=== PATIENT | male | born 1960 | race Caucasian/White ===

== ENCOUNTER 2019-04-10 10:21 | Emergency (ER) | payer BC ==
[2019-04-10 10:31] VITALS: TEMP 98.2; BMI 30.1
--- NOTE | 2019-04-10 10:43 | PDOC ---
History of Present Illness - General Chief Complaint: CVA/TIA Stated Complaint: LT ARM NUMBNESS Time Seen by Provider: 04/10/19 10:38 History Source: Patient Exam Limitations: No Limitations - History of Present Illness Initial Comments: 04/11/19 07:18 HPI: 59M PMH HTN, IDDM, and CAD s/p 2 stents presenting with 1 week of left arm numbness and tingling described as on and off affecting the dorsal aspect of the forearm. Numbness affected his first three fingers of the left hand yesterday and slightly improved over the day. Pt came to ED for evaluation of symptoms, concerned 2/2 past DC presentation. Denies cp/palpitation/sob. Denies f/c, other numbness/tingling, weakness, headache, lightheadedness, dizziness, changes in vision/hearing. No pain associated w/ sx. No neck pain. Atraumatic. No prior episodes of sx. 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 [facility] PCP PCN allergy 1PPD smoker etoh on weekends Past History - Past Medical History Allergies/Adverse Reactions: Allergies Allergy/AdvReac Type Severity Reaction Status Date / Time Penicillins Allergy Verified 04/10/19 10:26 Home Medications: Ambulatory Orders Aspirin [ASA -] 81 mg PO DAILY 04/10/19 Clopidogrel Bisulfate [Clopidogrel] 75 mg PO DAILY 04/10/19 Insulin Glargine,Hum.rec.anlog [Lantus Solostar PEN -] 10 units SQ HS 04/10/19 Lisinopril 5 mg PO DAILY 04/10/19 Metoprolol Tartrate [Lopressor -] 25 mg PO BID 04/10/19 metFORMIN HCL [Metformin HCl ER] 750 mg PO BID 04/10/19 COPD: No CHF: No DVT: No GI Disorders: Yes (DIVERTICULITIS) - Surgical History Abdominal Surgery: Yes (BOWEL RESECTION) Cardiac Surgery: Yes (STENTS X 2) - Immunization History Immunization Up to Date: Yes - Psycho Social/Smoking Cessation Hx Smoking History: Current every day smoker Number of Cigarettes Smoked Daily: 20 Information on smoking cessation initiated: No Hx Alcohol Use: No Drug/Substance Use Hx: No Review of Systems - Review of Systems Able to Perform ROS?: Yes Comments:: 04/11/19 07:18 ROS: CONSTITUTIONAL: Denies F / C HEENT: Denies headache, lightheadedness, dizziness, changes in vision / hearing , diplopia, blurry vision. RESP: Denies SOB CARD: Denies chest pain, palpitations GI: Denies N / V / D, abdominal pain, inability to tolerate PO SKIN: Denies rashes NEURO: Endorses numbness and tingling of the left arm and hand. Denies weakness MSK: Denies back and neck pain. Is the patient limited Korean proficient: No *Physical Exam - Vital Signs Last Vital Signs Temp Pulse Resp BP Pulse Ox 98.2 F 82 16 161/62 95 04/10/19 10:27 04/10/19 10:27 04/10/19 10:27 04/10/19 10:27 04/10/19 10:27 - Physical Exam Comments: 04/11/19 07:18 PE: GEN: Well appearing, NAD, comfortable. AAOx3 HEENT: NC/AT, CN II-XII intact, EOMI, PERRLA. No facial asymmetry. Moist mucous membranes. Normal voice. Supple neck w/ FROM. Sx not reproducible w/ ranging of neck. No midline c-spine TTP. CV: S1/S2, RRR, no m/r/g LUNG: CTAB, no wheezes, crackles, rales, rhonchi. GI: soft, ndnt, +BS, no guarding, no rebound EXTREMITIES: No obvious deformities of all extremities. SKIN: warm, dry, normal turgor PSYCH: normal mood and affect NEURO: Moving all extremities well. 5/5 symmetric strength of hand and finger muscles. 5/5 UE and LE strength b/l. Symmetric sensation to light touch. Numbness on the first three fingers of left hand and dorsal aspect of left forearm on sharp testing vs right side. Ambulates w/ normal gait. Tapping of left lateral epicondyle reproduces sx Medical Decision Making - Medical Decision Making 04/10/19 11:24 MDM: 59M with numbness and tingling in the left UE, median nerve distribution. Otherwise neurologically intact. Likely carpal tunnel syndrome - wrist splint - hand surgery f/u Discharge - Discharge Information Problems reviewed: Yes Clinical Impression/Diagnosis: Carpal tunnel syndrome of left wrist Condition: Stable Disposition: HOME - Admission No - Follow up/Referral Referrals: Juanjo Quesada MD [Staff Physician] - - Patient Discharge Instructions Patient Printed Discharge Instructions: DI for Carpal Tunnel Syndrome Additional Instructions: You were evaluated in the Emergency Department. Continue your home medications as prescribed. Take NSAIDs (e.g. advil, aleeve) for pain as directed by the label. We provided you with a wrist splint; please wear this during the night on the affected wrist. You may also wear it during the times you are working on the computer. Follow up with Hand Surgery in the next 7 days. We are referring you to Dr. Quesada, you may call and schedule an appointment at the number provided. Follow up with your primary care doctor regarding this visit in the next 7-14 days Immediately return to the nearest Emergency Department if you experience worsening symptoms or if you develop new or concerning symptoms. - Post Discharge Activity Work/Back to School Note: Back to Work
[2019-04-10 11:34] VITALS: BP 120/76; PULSE 84
--- NOTE | 2019-04-10 11:42 | PDOC ---
Attending Attestation - Resident Resident Name: Tyler Churchill - ED Attending Attestation I have performed the following: I have examined & evaluated the patient, The case was reviewed & discussed with the resident, I agree w/resident's findings & plan - HPI HPI: 04/10/19 11:35 59y/o M h/o CAD/AR s/p stents p/w L arm tingling for 4 days. Patient reports gradual onset of mild paresthesias extending from the left elbow to the left first through third digits, constant and otherwise not associated with any weakness. The tingling was worse yesterday, improved today, but patient presents for evaluation mostly given concern for history of heart disease. Patient has no cardiopulmonary complaints whatsoever, he has no exercise limitations, and the symptoms are not related to exertion. No shortness of breath or dyspnea orthopnea. No associated neurological complaints such as headache/vision change/speech change/weakness. 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 - Physicial Exam PE: 04/10/19 11:42 Vital signs normal Seated comfortably in stretcher speaking full sentences Neck is supple, no midline tenderness, full range of motion without trapezial swelling or tenderness 5/5 flex/extend of b/l shoulders/elbows/wrists. 5/5 hand strength including median nerve distribution. sensory subjectively decreased along L median nerve, but objectively intact. 2+ distal pulses. - Medical Decision Making 04/10/19 11:44 59-year-old male with cardiac history presents with paresthesias specifically in the distribution of the left median nerve, no associated weakness. No red flags on history or physical exam to suggest compressive neuropathy or cardiopulmonary etiology, strength is intact without obvious musculoskeletal deformity or evidence of infection. EKG performed and normal No indication for emergent cardiac work-up Patient reassured, agrees with plan, recommend sling/splint for comfort with guarded NSAID use given he takes aspirin and Plavix daily, orthopedics referral Understands return criteria Heart Score/ECG Review #1 ECG reviewed & interpreted by me at: 10:36 General ECG Interpretation: Sinus Rhythm, Normal Rate (81), Normal Intervals ( qtc 408), No acute ischemic changes Compared to previous ECG there are: Previous ECG unavail
--- NOTE | 2019-04-10 15:53 | EKG ---
Test Reason : Blood Pressure : / mmHG Vent. Rate : 081 BPM Atrial Rate : 081 BPM P-R Int : 160 ms QRS Dur : 092 ms QT Int : 352 ms P-R-T Axes : 050 071 065 degrees QTc Int : 408 ms NORMAL SINUS RHYTHM NORMAL ECG NO PREVIOUS ECGS AVAILABLE Confirmed by DANILO GARCIA MD ([id number]) on 04/10/2019 3:53:46 PM Referred By: Confirmed By:DANILO GARCIA MD
== END 2019-04-10 11:58 | disposition home or self-care (01) ==
LOC: JER 10:21
PROC: 2W3DX1Z Immobilization of Left Lower Arm using Splint (ICD-10-PCS; principal; 2019-04-10)
DX: G56.02 Carpal tunnel syndrome, left upper limb (principal); I25.10 Atherosclerotic heart disease of native coronary artery without angina pectoris; I10 Essential (primary) hypertension; Z95.5 Presence of coronary angioplasty implant and graft; E11.9 Type 2 diabetes mellitus without complications; Z79.4 Long term (current) use of insulin; F17.210 Nicotine dependence, cigarettes, uncomplicated; Z88.0 Allergy status to penicillin
CPT/HCPCS: 93005; 93010; 99282-25